=== PATIENT | male | born 1990 | race Caucasian/White ===

== ENCOUNTER 2022-01-23 21:24 | Emergency (ER) | payer MEDICAID, OTHER ==
[~2022-01-23] VITALS: Ht 185.4 cm; Wt 139.7 kg
[2022-01-23 21:42] LABS: BASOPHILS # (AUTO) 0.1 10^3/uL (0.0-0.1); BASOPHILS % (AUTO) 1 % (0-10); EOSINOPHILS # (AUTO) 0.3 10^3/uL (0.0-0.3); EOSINOPHILS % (AUTO) 3 % (0-10); HEMATOCRIT 44 % (40-54); HEMOGLOBIN 14.7 g/dL (13.3-17.7); LYMPHOCYTES % (AUTO) 29 % (12-44); MEAN CORPUSCULAR HEMOGLOBIN 30 pg (25-34); MEAN CORPUSCULAR HGB CONC 33 g/dL (32-36); MEAN CORPUSCULAR VOLUME 90 fL (80-99); MEAN PLATELET VOLUME 9.5 fL (9.0-12.2); MONOCYTES # (AUTO) 0.9 10^3/uL (0.0-1.0); MONOCYTES % (AUTO) 9 % (0-12); NEUTROPHILS # (AUTO) 6.1 10^3/uL (1.8-7.8); NEUTROPHILS % (AUTO) 58 % (42-75); PLATELET COUNT 260 10^3/uL (130-400); WHITE BLOOD COUNT 10.4 10^3/uL (4.3-11.0)
[2022-01-23 22:09] LABS: POTASSIUM 3.7 MMOL/L (3.6-5.0)
[2022-01-23 22:10] LABS: ALBUMIN 4.5 GM/DL (3.2-4.5); BILIRUBIN,TOTAL 0.4 MG/DL (0.1-1.0); CALCIUM 9.2 MG/DL (8.5-10.1); TOTAL PROTEIN 7.5 GM/DL (6.4-8.2)
--- NOTE | 2022-01-23 22:38 | ED General ---
General Chief Complaint: Dizziness/Syncope Stated Complaint: FALL Nursing Triage Note: Pt had a syncopal episode while sitting in the bleachers watching his son baseball game. Denies hitting head or other injury. Denies CP, SOA. Pt has hx of TBI and stated "I just wanted to be checked out." Source of Information: Patient, EMS, Family Exam Limitations: Physical Impairments History of Present Illness Date Seen by Provider: Jan 23, 2022 Time Seen by Provider: 21:25 Initial Comments 31-year-old male patient with history of TBI brought in by EMS because of syncopal episode. Patient was watching a ball game at very hot weather and felt dizzy and had a near syncope without fall, injury, seizure activity patient states he is feeling like his normal condition at arrival to ER and denies chest pain, shortness of breath, new focal neurodeficit, fever or chills, history of syncope. Allergies and Home Medications Allergies Coded Allergies: No Known Allergies (Verified Allergy, Unknown, 01/23/22) Patient Home Medication List Home Medication List Reviewed: Yes Review of Systems Review of Systems Constitutional: no symptoms reported EENTM: no symptoms reported Respiratory: no symptoms reported Cardiovascular: no symptoms reported Gastrointestinal: no symptoms reported Genitourinary: no symptoms reported Musculoskeletal: no symptoms reported Skin: no symptoms reported Psychiatric/Neurological: See HPI Past Imisplm-Xozvce-Nlkvay Hx Patient Social History Tobacco Use?: No Use of E-Cig and/or Vaping dev: No Substance use?: No Alcohol Use?: No Pt feels they are or have been: No Physical Exam Vital Signs Vital Signs - First Documented 01/23/22 21:25 Temp 36.3 Pulse 71 Resp 17 B/P (MAP) 129/72 (91) Pulse Ox 97 O2 Delivery Room Air Capillary Refill : Less Than 3 Seconds Height, Weight, BMI Height: '" Weight: lbs. oz. kg; 40.00 BMI Method: General Appearance: No Apparent Distress, WD/WN HEENT: PERRL/EOMI Neck: Full Range of Motion, Normal Inspection Respiratory: Chest Non Tender, Lungs Clear Cardiovascular: Regular Rate, Rhythm, No Edema Gastrointestinal: Normal Bowel Sounds, No Organomegaly Back: Normal Inspection Extremity: Normal Capillary Refill, Other (Right upper and lower extremity chronic weakness) Neurologic/Psychiatric: Alert, Normal Mood/Affect, Motor Weakness, Other (TBI) Skin: Normal Color Progress/Results/Core Measures Suspected Sepsis SIRS Temperature: Pulse: 71 Respiratory Rate: 17 Laboratory Tests 01/23/22 21:30: White Blood Count 10.4 Blood Pressure 129 /72 Mean: 91 Laboratory Tests 01/23/22 21:30: Creatinine 1.00, Platelet Count 260, Total Bilirubin 0.4 Results/Orders Lab Results Laboratory Tests Test 01/23/22 21:30 Range/Units White Blood Count 10.4 4.3-11.0 10^3/uL Red Blood Count 4.92 4.30-5.52 10^6/uL Hemoglobin 14.7 13.3-17.7 g/dL Hematocrit 44 40-54 % Mean Corpuscular Volume 90 80-99 fL Mean Corpuscular Hemoglobin 30 25-34 pg Mean Corpuscular Hemoglobin Concent 33 32-36 g/dL Red Cell Distribution Width 12.8 10.0-14.5 % Platelet Count 260 130-400 10^3/uL Mean Platelet Volume 9.5 9.0-12.2 fL Immature Granulocyte % (Auto) 0 % Neutrophils (%) (Auto) 58 42-75 % Lymphocytes (%) (Auto) 29 12-44 % Monocytes (%) (Auto) 9 0-12 % Eosinophils (%) (Auto) 3 0-10 % Basophils (%) (Auto) 1 0-10 % Neutrophils # (Auto) 6.1 1.8-7.8 10^3/uL Lymphocytes # (Auto) 3.0 1.0-4.0 10^3/uL Monocytes # (Auto) 0.9 0.0-1.0 10^3/uL Eosinophils # (Auto) 0.3 0.0-0.3 10^3/uL Basophils # (Auto) 0.1 0.0-0.1 10^3/uL Immature Granulocyte # (Auto) 0.0 0.0-0.1 10^3/uL Sodium Level 142 135-145 MMOL/L Potassium Level 3.7 3.6-5.0 MMOL/L Chloride Level 106 98-107 MMOL/L Carbon Dioxide Level 25 21-32 MMOL/L Anion Gap 11 5-14 MMOL/L Blood Urea Nitrogen 7 7-18 MG/DL Creatinine 1.00 0.60-1.30 MG/DL Estimat Glomerular Filtration Rate 103 BUN/Creatinine Ratio 7 Glucose Level 101 70-105 MG/DL Calcium Level 9.2 8.5-10.1 MG/DL Corrected Calcium 8.8 8.5-10.1 MG/DL Total Bilirubin 0.4 0.1-1.0 MG/DL Aspartate Amino Transf (AST/SGOT) 32 5-34 U/L Alanine Aminotransferase (ALT/SGPT) 35 0-55 U/L Alkaline Phosphatase 78 40-136 U/L Total Protein 7.5 6.4-8.2 GM/DL Albumin 4.5 3.2-4.5 GM/DL My Orders Orders - RUBEN NEAL MD Cbc With Automated Diff (01/23/22 21:35) Comprehensive Metabolic Panel (01/23/22 21:35) Vital Signs/I&O 01/23/22 01/23/22 21:25 22:46 Temp 36.3 Pulse 71 79 Resp 17 18 B/P (MAP) 129/72 (91) 129/80 Pulse Ox 97 98 O2 Delivery Room Air Room Air Capillary Refill : Less Than 3 Seconds Blood Pressure Mean: 91 Progress Note : Progress Note Evaluation of patient in ER showed 31-year-old male patient with history of TBI brought in by EMS because of syncopal episode after watching a ball game at very hot weather. Patient stated he is feeling good at arrival to ER. Patient treated with IV fluid. CBC and CMP was unremarkable patient did not have new focal neurodeficit. Patient advised to drink more liquids and avoid of exposure to hot weather. Departure Impression Primary Impression: Vasovagal syncope Disposition: 01 HOME, SELF-CARE Condition: Improved Departure-Patient Inst. Decision time for Depature: 22:37 Patient Instructions: Vasovagal Response Add. Discharge Instructions: Drink plenty of liquid Avoid of exposure to heat for a long time Follow-up with your primary care physician or return to ER as needed All discharge instructions reviewed with patient and/or family. Voiced understanding. RUBEN NEAL MD Jan 23, 2022 22:38
[2022-01-23 22:46] VITALS: BP 129/80
== END 2022-01-23 22:45 | disposition home or self-care (01) ==
LOC: ER FS 21:26
DX: R55 Syncope and collapse (principal); R53.1 Weakness; Z87.820 Personal history of traumatic brain injury
CPT/HCPCS: 36415; 80053; 85025